=== PATIENT | female | born 1935 | race Caucasian/White ===

== ENCOUNTER 2016-08-30 11:16 | Outpatient (CLI) | payer MEDICARE ==
[2016-08-19 10:01] VITALS: BP 93/43
[2016-08-30 11:58] LABS: eGFR (African) > 60; eGFR (Non-African) > 60
== END 2016-08-30 11:18 ==
LOC: LAB 11:16
PROVIDERS: ATTEND Family Medicine
DX: E78.2 Mixed hyperlipidemia (principal)
CPT/HCPCS: 36415; 80053; 80061

== ENCOUNTER 2017-05-10 09:50 | Inpatient (IN) | payer MEDICARE ==
--- NOTE | 2017-05-10 10:00 | ED Physician Documentation ---
General Adult - HISTORIAN Historian: patient, paramedics - HPI Stated Complaint: fell after taking a percocet approx one hour prior Chief Complaint: Low Back Pain/ Injury Onset: hours (1) Timing: still present Severity: moderate Modifying Factors: none Context: non Quality: non Location: none Further Comments: yes (she has the same back pain and that is why she take the percocet which usually helps although she is still having pain) Last known Well Date: 05/10/17 Last Known Well Time: 08:00 Last known Well Code/Unknown Code: Unknown - ROS CONST: denies: fever, recent illness, weight loss EYES/ENT: none CVS/RESP: shortness of breath (always short on air per ) GI/: none. denies: abdominal pain, problems urinating, vomiting, nausea MS/SKIN/LYMPH: none NEURO/PSYCH: difficulty walking (weakness ). denies: headache, fainting, dizziness, tingling, numbness - PAST HX Past History: other (stroke 6 years ago , history of lung CA ) Immunizations: referred to PCP Allergies/Adverse Reactions: Allergies Allergy/AdvReac Type Severity Reaction Status Date / Time No Known Allergies Allergy Verified 05/10/17 10:07 Home Medications: Ambulatory Orders Medication Instructions Recorded Presser Vision 1 tab PO DAILY 12/17/15 Cyanocobalamin [Vitamin B-12] 1,000 mcg PO DAILY 05/10/17 Docusate Sodium [Colace] 100 mg PO DAILY 05/10/17 Primidone [Mysoline] 50 mg PO DAILY 05/10/17 - SOCIAL HX Smoking History: non-smoker Alcohol Use: none Drug Use: none - FAMILY HX Family History: Yes - VITAL SIGNS Vital Signs: Vital Signs Temp Pulse Resp BP Pulse Ox 93/43 12/25/15 07:53 - REVIEWED ASSESSMENTS Nursing Assessment Reviewed: Yes Vitals Reviewed: Yes Progress - Progress Progress: patient continues to get short of breath , sat drops to 88% with standing then with movement in bed she had oxygen levels drop to 82% and she does complain of shortness of breath. She does have history of Lung CA (could not tolerate chemo did finish radiation) ED Results Lab/Radiology - Radiology Radiology Impressions: Examination: Plain film lumbar spine History: Fall Comparison exam: None available Findings: 3 views of the lumbar spine demonstrates diffuse osteopenia. Superior endplate narrowing of L3. Anterior osteophytes. Curvature to the left on the anterior posterior film. Significant atherosclerotic disease involving the abdominal aorta and iliac vessels. Maximum aortic diameter of 3.1 cm at the level of L3. Impression: Osteopenia and superior endplate narrowing L3: Chronicity indeterminate. Generalized degenerative changes. Prominence of the aorta to 3.1 cm at the level of L3. Generalized atherosclerotic disease. Electronically signed on May 10, 2017 11:09:16 AM CDT by: Satya Tierney Examination: Plain film thoracic spine History: Fall Findings: 3 views of the thoracic spine demonstrate normal height. No anterior compression. Anterior osteophytes. Atherosclerotices involving the thoracic and abdominal aorta. Mona cath over the right upper thorax. Impression: Degenerative changes. No compression deformity. Electronically signed on May 10, 2017 11:10:25 AM CDT by: Satya Tierney Examination: PA and lateral chest History: Evaluate lung paul. Comparison exam: None available for direct view Findings: PA lateral chest demonstrates prominent cardiac silhouette. Chronic appearing interstitial changes. Apical pleural thickening. Right-sided mona cath. No blunting of the costophrenic margins. Osseous structures are appropriate for age. Impression: Cardiomegaly and chronic appearing parenchymal interstitial pattern. Correlation with prior studies recommended. No gross effusion. Electronically signed on May 10, 2017 11:12:46 AM CDT by: Satya Tierney General Adult Physical Exam - PHYSICAL EXAM GENERAL APPEARANCE: mild distress NECK: normal inspection RESPIRATORY: other (decreased air movement ) CVS: reg rate & rhythm, heart sounds normal ABDOMEN: soft, no organomegaly, normal bowel sounds BACK: other (HUGHES she states the pain is too severe to sit up and view ) SKIN: warm/dry EXTREMITIES: non-tender, normal range of motion, no evidence of injury, no edema. No: tenderness NEURO: oriented X3 Discharge Clincal Impression: Hypoxemia Condition: Stable Disposition: ADMITTED INPATIENT Decision to Admit: [id number] Date of Decison to Admit: 05/10/17 Decision Time: 14:07
[2017-05-10 10:36] LABS: MEAN CORPUSCULAR HEMOGLOBIN 30.9 pg (28.0-34.0); MEAN CORPUSCULAR VOLUME 100.4 fl (80.0-100.0)
[2017-05-10 11:06] LABS: eGFR (African) > 60; eGFR (Non-African) > 60
[2017-05-10 11:07] LABS: ANISOCYTOSIS 1+ (NEGATIVE); HYPOCHROMASIA 1+ (NEGATIVE); MONOCYTES % 4 % (0-11); SEGMENTED NEUTROPHILS % 66 % (39-79)
[2017-05-10] MEDS ORDERED: KETOROLAC TROMETHAMINE 30 MG/1ML VIAL IVP ONE (11:19)
--- NOTE | 2017-05-10 11:56 | Diagnostic Imaging Report ---
HALI TRINH [facility] [address] [facility] [address] [place], [place]. [address] Report Submission Date: May 10, 2017 11:12:46 AM CDT Patient Study Name: JULEE CHEN Date: May 10, 2017 10:50:59 AM CDT Modality Type: CR Gender: F Description: CHEST : 39 Institution: [facility] Physician: HALI TRINH Examination: PA and lateral chest History: Evaluate lung paul. Comparison exam: None available for direct view Findings: PA lateral chest demonstrates prominent cardiac silhouette. Chronic appearing interstitial changes. Apical pleural thickening. Right-sided saw cath. No blunting of the costophrenic margins. Osseous structures are appropriate for age. Impression: Cardiomegaly and chronic appearing parenchymal interstitial pattern. Correlation with prior studies recommended. No gross effusion. Electronically signed on May 10, 2017 11:12:46 AM CDT by: Satya WILLIAM
--- NOTE | 2017-05-10 11:57 | Diagnostic Imaging Report ---
HALI TRINH [facility] [address] [facility] [address] [place], [place]. [address] Report Submission Date: May 10, 2017 11:10:25 AM CDT Patient Study Name: JULEE CHEN Date: May 10, 2017 10:32:10 AM CDT Modality Type: CR Gender: F Description: SPINE : 39 Institution: [facility] Physician: HALI TRINH Examination: Plain film thoracic spine History: Fall Findings: 3 views of the thoracic spine demonstrate normal height. No anterior compression. Anterior osteophytes. Atherosclerotices involving the thoracic and abdominal aorta. Mona cath over the right upper thorax. Impression: Degenerative changes. No compression deformity. Electronically signed on May 10, 2017 11:10:25 AM CDT by: Satya WILLIAM
--- NOTE | 2017-05-10 11:57 | Diagnostic Imaging Report ---
HALI TRINH [facility] [address] [facility] [address] [place], [place]. [address] Report Submission Date: May 10, 2017 11:09:16 AM CDT Patient Study Name: JULEE CHEN Date: May 10, 2017 10:30:04 AM CDT Modality Type: CR Gender: F Description: SPINE : 39 Institution: [facility] Physician: HALI TRINH Examination: Plain film lumbar spine History: Fall Comparison exam: None available Findings: 3 views of the lumbar spine demonstrates diffuse osteopenia. Superior endplate narrowing of L3. Anterior osteophytes. Curvature to the left on the anterior posterior film. Significant atherosclerotic disease involving the abdominal aorta and iliac vessels. Maximum aortic diameter of 3.1 cm at the level of L3. Impression: Osteopenia and superior endplate narrowing L3: Chronicity indeterminate. Generalized degenerative changes. Prominence of the aorta to 3.1 cm at the level of L3. Generalized atherosclerotic disease. Electronically signed on May 10, 2017 11:09:16 AM CDT by: Satya WILLIAM
[2017-05-10] MEDS ORDERED: IPRATROPIUM/ALBUTEROL SULFATE 3 ML AMPUL.NEB NEB ONE ×2 (13:29)
[2017-05-10] MEDS ORDERED: IPRATROPIUM/ALBUTEROL SULFATE 3 ML AMPUL.NEB NEB PRN (13:44)
[2017-05-10] MEDS ORDERED: methylPREDNISolone SOD SUCC 125 MG/2 ML VIAL IVP ONE (13:59)
[2017-05-10] MEDS ORDERED: SIMVASTATIN 20 MG TABLET PO SCH (14:00)
[2017-05-10] MEDS ORDERED: OXYBUTYNIN CHLORIDE 5 MG TABLET PO ONE (14:53)
[2017-05-10] MEDS ORDERED: MIRTAZAPINE 15 MG TABLET PO ONE (14:58)
[2017-05-10] MEDS: PANTOPRAZOLE SODIUM 40 MG TABLET PO SCH (15:07)
[2017-05-10] MEDS: ENOXAPARIN SODIUM 30 MG/0.3 ML DISP.SYRIN SQ SCH (15:07)
[2017-05-10] MEDS: oxyCODONE/ACETAMINOPHEN 5/325 TABLET PO PRN ×2 (16:31→20:54)
[2017-05-10] MEDS ORDERED: ONDANSETRON HCL/PF 4 MG/ 2ML VIAL IVP PRN (16:44)
[2017-05-10] MEDS ORDERED: ACETAMINOPHEN 325 MG TABLET PO PRN (16:44)
[2017-05-10 17:51] VITALS: BMI 24.2
--- NOTE | 2017-05-10 20:28 | History and Physical Report ---
History of Present Illnes - History of Present Illness Reason for Visit: Fall History of Present Illness: Patient presented to the ER after falling at home. She stumbled and fell against the wall. Has a h/o chronic back pain, but it felt worse so she came in. Reports she has had worsening SOB recently. Has a long history of smoking - now has recurrent lung cancer and COPD. She wears O2 at night. She was found in the ER to be hypoxic with activity. Rolling over in bed caused her SATS to drop to 82%. She is being admitted for COPD exacerbation. 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 She sees Dr. Mccray. Has been having issues with memory and concentration. 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 Severino in pain management several times.), Other (Osteoporosis) Endocrine: denies: Diabetes - Past Surgical History Past Surgical History: Other (refer to above) - Past Family History Mother Family History: Other (lived to age 91 - dementia) Father Family History: Other (prostate cancer, age 84) - Past Social History Smoke: 1 pack per day Occupation: Retired Alcohol: None Drugs: None Lives: With Family ( of 55 years - Sam) - Health Maintenance Health Maintenance: Influenza Vaccine, Pneumococcal Vaccine, Colonoscopy Influenza Vaccine: Current for this Influenza Season Pneumonia Vaccine: Yes Resuscitation Status: Resusciation Status Resuscitation Status Full Code Review of Systems - Review of Systems Constitutional: negative: Fever, Weakness Eyes: negative: pain ENT: negative: Ear Pain, Ear Discharge Respiratory: Cough, Shortness of Breath Cardiovascular: negative: Chest Pain, Palpitations Gastrointestinal: negative: Nausea, Vomiting, Abdominal Pain, Diarrhea Genitourinary: negative: Dysuria Musculoskeletal: Back Pain. negative: Neck Pain Skin: negative: Rash Neurological: Weakness - Medications/Allergies Allergies/Adverse Reactions: Allergies Allergy/AdvReac Type Severity Reaction Status Date / Time No Known Allergies Allergy Verified 05/10/17 10:07 Home Medications: Home Medications Cyanocobalamin [Vitamin B-12] 1,000 mcg PO DAILY 05/10/17 Docusate Sodium [Colace] 100 mg PO DAILY 05/10/17 Primidone [Mysoline] 50 mg PO DAILY 05/10/17 Current Inpatient Medications: Current Inpatient Medications Acetaminophen (Tylenol) 650 mg PO Q6H PRN PRN Reason: Fever >101 Albuterol/Ipratropium (Duoneb) 3 ml NEB Q4 PRN PRN Reason: Wheezing Cyanocobalamin (Vitamin B-12) 1,000 mcg PO DAILY [facility] Docusate Sodium (Colace) 100 mg PO DAILY [facility] Duloxetine HCl (Cymbalta) 30 mg PO DAILY [facility] Enoxaparin Sodium (Lovenox) 30 mg SQ QD [facility] Stop: 05/23/17 14:01 Last Admin: 05/10/17 15:07 Dose: 30 mg Megestrol Acetate (Megace) 300 mg PO BID [facility] Methylprednisolone Sodium Succinate (Solu-Medrol) 60 mg IVP Q12 [facility] Mirtazapine (Remeron) 15 mg PO HS [facility] Ondansetron HCl (Zofran 4 Mg/2 Ml) 4 mg IVP Q6H PRN PRN Reason: Nausea / Vomiting Oxybutynin Chloride (Ditropan) 5 mg PO HS [facility] Oxycodone/Acetaminophen (Percocet 5-325 Mg Tablet) 1 each PO Q4 PRN PRN Reason: Severe Pain Last Admin: 05/10/17 16:31 Dose: 1 each Pantoprazole Sodium (Protonix) 40 mg PO 0700 [facility] Last Admin: 05/10/17 15:07 Dose: 40 mg Primidone (Mysoline) 50 mg PO DAILY [facility] Sodium Chloride (Normal Saline Flush) 3 ml IV BID [facility] Exam - Exam Vital Signs: Vital Signs (72 hours) 05/10/17 05/10/17 05/10/17 14:00 14:26 18:00 Temperature 98 F 97.6 F Pulse Rate [ 97 H 97 H 93 H Pulse ox] Respiratory 24 20 20 Rate Blood Pressure 140/73 [Left Arm] Blood Pressure 161/70 134/68 [Right Arm] O2 Sat by Pulse 97 97 94 Oximetry General: Alert, Oriented to Person, Oriented to Place, Oriented to Time, Cooperative, Mild distress HEENT: Atraumatic, PERRLA, EOMI, Mouth Mucous membr. moist/[place], Nose Mucous membr. moist/[place] Neck: Normal Range of Motion Lungs: Rhonchi Cardiovascular: Regular rate Abdomen: Normal bowel sounds, Soft, No tenderness Integumentary: Normal Extremities: No edema Neurological: Generalized Weakness Psych/Mental Status: Mental status NL, Mood NL, Appropriate Affect, Intact Judgment Assessment/Plan - Assessment/Plan (1) COPD exacerbation Status: Acute Current Visit: Yes Plan: Plan to admit with duonebs and IV solumedrol. Will use lovenox for DVT prevention but watch platelets closely. Place DANELLE hose. O2 to keeps sats > 90% . CXR clear of infiltrate and normal WBC. Hold antibiotics at this time. (2) Hypoxemia Status: Acute Current Visit: Yes (3) Chronic low back pain Status: Acute Current Visit: No Qualifiers: Back pain laterality: bilateral Sciatica presence: without sciatica Qualified Code(s): M54.5 - Low back pain; G89.29 - Other chronic pain; G89.29 - Other chronic pain Plan: Continue current pain meds. Xrays negative. Kpad as needed. (4) Lung cancer Status: Acute Current Visit: No Qualifiers: Laterality: right Lung location: upper lobe of lung Qualified Code(s): C34.11 - Malignant neoplasm of upper lobe, right bronchus or lung Plan: Patient continues to get weaker. I don't see how can care for her much longer. Will get social science teacher involved to discuss possible placement. I had home health starting tomorrow for patient. VTE Assessment - RISK FACTOR SCORE VTE RISK FACTOR SCORES: AGE OVER 60 YEARS, ANTICIPATED BED CONFINEMENT OR IMMOBILIZATION > 24 HOURS, MALIGNANCY AND/OR CHEMOTHERAPY, DOCUMENTED HX OF VTE - RISK VTE HIGH RISK: SCORE OF 3-4 (RISK PROXIMAL DVT 4-8%) PROPHYLAXIS NEEDED
[2017-05-10] MEDS: OXYBUTYNIN CHLORIDE 5 MG TABLET PO SCH (20:50)
[2017-05-10] MEDS: MEGESTROL ACETATE 40 MG/ML PO SCH (20:52)
[2017-05-10] MEDS: MIRTAZAPINE 15 MG TABLET PO SCH (20:53)
[2017-05-10] MEDS: SALINE FLUSH 10 ML DISP.SYRIN IV SCH (20:54)
[2017-05-10] MEDS: methylPREDNISolone SOD SUCC 40 MG/ML VIAL IVP SCH (21:48)
[2017-05-11] MEDS: oxyCODONE/ACETAMINOPHEN 5/325 TABLET PO PRN ×4 (01:30→16:43)
[2017-05-11] MEDS: PANTOPRAZOLE SODIUM 40 MG TABLET PO SCH (06:32)
--- NOTE | 2017-05-11 06:40 | Inpatient Progress Note ---
Subjective - Required Recertification Statement I anticipate X number of days because-include discharge plan: 2 - Review of Systems Subjective: Patient feeling ok. Complains of back pain. Somewhat confused. Objective - Exam Vitals and I&O: Vital Signs Temp 97.7 F 05/11/17 05:17 Pulse 98 H 05/11/17 05:17 Resp 18 05/11/17 05:17 BP 157/91 05/11/17 05:17 Pulse Ox 95 05/11/17 05:17 Intake & Output 05/10/17 05/10/17 05/11/17 11:59 23:59 11:59 Intake Total 100 Balance 100 Weight 68 kg Intake: Oral 100 Other: Voiding Method Incontinent # Voids 0 1 General: Alert, Oriented to Person, Oriented to Place, Cooperative, No acute distress. No: Oriented to Time Lungs: Normal air movement, Speaks full Sentences, Rhonchi Cardiovascular: Regular rate - Results Results: Laboratory Results WBC 7.90 K/ul (4.00-12.00) 05/10/17 10:25 RBC 3.39 M/ul (3.90-5.20) L 05/10/17 10:25 Hgb 10.5 g/dL (12.0-16.0) L 05/10/17 10:25 Hct 34.1 % (34.5-46.5) L 05/10/17 10:25 MCV 100.4 fl (80.0-100.0) H 05/10/17 10:25 MCH 30.9 pg (28.0-34.0) 05/10/17 10:25 MCHC 30.8 g/dL (30.0-36.0) 05/10/17 10:25 RDW 15.0 % (11.3-14.3) H 05/10/17 10:25 Plt Count 119 K/mm3 (130-400) L 05/10/17 10:25 Seg Neutrophils % 66 % (39-79) 05/10/17 10:25 Band Neutrophils % 1 % (0-12) 05/10/17 10:25 Lymphocytes % 29 % (16-50) 05/10/17 10:25 Monocytes % 4 % (0-11) 05/10/17 10:25 Large Platelets Present (NEGATIVE) H 05/10/17 10:25 Plt Morphology Comment Abnormal (NORMAL) H 05/10/17 10:25 Hypochromasia 1+ (NEGATIVE) H 05/10/17 10:25 Anisocytosis 1+ (NEGATIVE) H 05/10/17 10:25 RBC Morph Comment Abnormal (NORMAL) H 05/10/17 10:25 Sodium 141 mmol/L (137-145) 05/10/17 10:25 Potassium 3.8 mmol/L (3.5-5.1) 05/10/17 10:25 Chloride 102 mmol/L (98-107) 05/10/17 10:25 Carbon Dioxide 28 mmol/L (22-30) 05/10/17 10:25 BUN 19 mg/dL (7-17) H 05/10/17 10:25 Creatinine 0.70 mg/dL (0.52-1.04) 05/10/17 10:25 Estimated Creat Clear 81 05/10/17 10:25 Est GFR ( Amer) > 60 (60-) 05/10/17 10:25 Est GFR (Non-Af Amer) > 60 (60-) 05/10/17 10:25 Glucose 134 mg/dL (74-106) H 05/10/17 10:25 Calcium 9.0 mg/dL (8.4-10.2) 05/10/17 10:25 Total Bilirubin 0.3 mg/dL (0.2-1.3) 05/10/17 10:25 AST 28 U/L (15-46) 05/10/17 10:25 ALT 25 U/L (13-69) 05/10/17 10:25 Alkaline Phosphatase 85 U/L (38-126) 05/10/17 10:25 Total Protein 8.3 g/dL (6.3-8.2) H 05/10/17 10:25 Albumin 4.2 g/dL (3.5-5.0) 05/10/17 10:25 Assessment/Plan - Assessment/Plan (1) COPD exacerbation Status: Acute Current Visit: Yes Plan: Continue IV solumedrol and Duonebs. (2) Hypoxemia Status: Acute Current Visit: Yes (3) Chronic low back pain Status: Acute Current Visit: No Qualifiers: Back pain laterality: bilateral Sciatica presence: without sciatica Qualified Code(s): M54.5 - Low back pain; G89.29 - Other chronic pain; G89.29 - Other chronic pain Plan: Trial of out of bed to help with pain. Add ibuprofen prn. (4) Lung cancer Status: Acute Current Visit: No Qualifiers: Laterality: right Lung location: upper lobe of lung Qualified Code(s): C34.11 - Malignant neoplasm of upper lobe, right bronchus or lung
[2017-05-11 07:14] LABS: MEAN CORPUSCULAR HEMOGLOBIN 30.8 pg (28.0-34.0); MEAN CORPUSCULAR VOLUME 97.1 fl (80.0-100.0)
[2017-05-11 07:16] LABS: BASOPHILS % 1.1 (0.0-1.5); EOSINOPHILS % 1.1 % (0.0-6.8); NEUTROPHILS # 2.8 # k/uL (1.4-7.7)
[2017-05-11 07:28] LABS: eGFR (African) > 60; eGFR (Non-African) > 60
[2017-05-11] MEDS ORDERED: IBUPROFEN 200 MG TABLET PO PRN (07:58)
[2017-05-11] MEDS: DOCUSATE SODIUM 100 MG CAPSULE PO SCH (08:50)
[2017-05-11] MEDS: MEGESTROL ACETATE 40 MG/ML PO SCH ×2 (08:51→20:13)
[2017-05-11] MEDS: DULoxetine HCL 30 MG CAPSULE.DR PO SCH (08:51)
[2017-05-11] MEDS: PRIMIDONE 50 MG TABLET PO SCH (08:53)
[2017-05-11] MEDS: SALINE FLUSH 10 ML DISP.SYRIN IV SCH ×2 (08:54→20:13)
[2017-05-11] MEDS: CYANOCOBALAMIN 1,000 MCG TABLET PO SCH (08:54)
[2017-05-11] MEDS ORDERED: DULoxetine HCL 30 MG CAPSULE.DR PO SCH ×2 (09:00)
[2017-05-11] MEDS ORDERED: PRIMIDONE 50 MG TABLET PO SCH (09:00)
[2017-05-11] MEDS: methylPREDNISolone SOD SUCC 40 MG/ML VIAL IVP SCH ×2 (09:48→20:12)
[2017-05-11] MEDS: ENOXAPARIN SODIUM 30 MG/0.3 ML DISP.SYRIN SQ SCH (13:16)
[2017-05-11] MEDS: OXYBUTYNIN CHLORIDE 5 MG TABLET PO SCH (20:13)
[2017-05-11] MEDS: MIRTAZAPINE 15 MG TABLET PO SCH (20:13)
[2017-05-12] MEDS: oxyCODONE/ACETAMINOPHEN 5/325 TABLET PO PRN ×3 (05:42→17:20)
[2017-05-12] MEDS: PANTOPRAZOLE SODIUM 40 MG TABLET PO SCH (06:26)
--- NOTE | 2017-05-12 08:22 | Inpatient Progress Note ---
Subjective - Required Recertification Statement I anticipate X number of days because-include discharge plan: 1 - Review of Systems Subjective: Patient reports breathing is better at rest. When she got up to bathroom, she continues to get SOB. Objective - Exam Vitals and I&O: Vital Signs Temp 98.2 F 05/12/17 05:19 Pulse 97 H 05/12/17 05:19 Resp 21 05/12/17 05:19 BP 151/84 05/12/17 05:19 Pulse Ox 95 05/12/17 05:19 Intake & Output 05/11/17 05/11/17 05/12/17 11:59 23:59 11:59 Intake Total 120 475 Balance 120 475 Weight 68 kg Intake: Oral 120 475 Other: Voiding Method Incontinent Incontinent # Voids 1 1 General: Alert, Oriented to Person, Oriented to Place, Oriented to Time, Cooperative, No acute distress Lungs: Rhonchi Cardiovascular: Regular rate - Results Results: Laboratory Results WBC 3.54 K/ul (4.00-12.00) L 05/11/17 07:00 RBC 3.23 M/ul (3.90-5.20) L 05/11/17 07:00 Hgb 9.9 g/dL (12.0-16.0) L 05/11/17 07:00 Hct 31.4 % (34.5-46.5) L 05/11/17 07:00 MCV 97.1 fl (80.0-100.0) 05/11/17 07:00 MCH 30.8 pg (28.0-34.0) 05/11/17 07:00 MCHC 31.7 g/dL (30.0-36.0) 05/11/17 07:00 RDW 15.2 % (11.3-14.3) H 05/11/17 07:00 Plt Count 119 K/mm3 (130-400) L 05/11/17 07:00 Neut % (Auto) 78.7 % (39.0-79.0) 05/11/17 07:00 Lymph % (Auto) 17.1 % (16.0-50.0) 05/11/17 07:00 [place] % (Auto) 1.0 % (0.0-11.0) 05/11/17 07:00 Eos % (Auto) 1.1 % (0.0-6.8) 05/11/17 07:00 Baso % (Auto) 1.1 (0.0-1.5) 05/11/17 07:00 Neut # (Auto) 2.8 # k/uL (1.4-7.7) 05/11/17 07:00 Lymph # (Auto) 0.6 # k/uL (0.6-4.0) 05/11/17 07:00 [place] # (Auto) 0.0 # k/uL (0.0-0.9) 05/11/17 07:00 Eos # (Auto) 0.0 # k/uL (0.0-0.6) 05/11/17 07:00 Baso # (Auto) 0.0 # k/uL (0.0-0.5) 05/11/17 07:00 Seg Neutrophils % 66 % (39-79) 05/10/17 10:25 Band Neutrophils % 1 % (0-12) 05/10/17 10:25 Lymphocytes % 29 % (16-50) 05/10/17 10:25 Reactive Lymphs % 0.9 % (0.0-5.0) 05/11/17 07:00 Monocytes % 4 % (0-11) 05/10/17 10:25 Reactive Lymphs # 0.0 # k/uL (0.0-0.8) 05/11/17 07:00 Large Platelets Present (NEGATIVE) H 05/10/17 10:25 Plt Morphology Comment Abnormal (NORMAL) H 05/10/17 10:25 Hypochromasia 1+ (NEGATIVE) H 05/10/17 10:25 Anisocytosis 1+ (NEGATIVE) H 05/10/17 10:25 RBC Morph Comment Abnormal (NORMAL) H 05/10/17 10:25 Sodium 138 mmol/L (137-145) 05/11/17 07:00 Potassium 4.5 mmol/L (3.5-5.1) 05/11/17 07:00 Chloride 101 mmol/L (98-107) 05/11/17 07:00 Carbon Dioxide 27 mmol/L (22-30) 05/11/17 07:00 BUN 21 mg/dL (7-17) H 05/11/17 07:00 Creatinine 0.80 mg/dL (0.52-1.04) 05/11/17 07:00 Estimated Creat Clear 72 05/11/17 07:00 Est GFR ( Amer) > 60 (60-) 05/11/17 07:00 Est GFR (Non-Af Amer) > 60 (60-) 05/11/17 07:00 Glucose 160 mg/dL (74-106) H 05/11/17 07:00 Calcium 9.5 mg/dL (8.4-10.2) 05/11/17 07:00 Total Bilirubin 0.3 mg/dL (0.2-1.3) 05/10/17 10:25 AST 28 U/L (15-46) 05/10/17 10:25 ALT 25 U/L (13-69) 05/10/17 10:25 Alkaline Phosphatase 85 U/L (38-126) 05/10/17 10:25 Total Protein 8.3 g/dL (6.3-8.2) H 05/10/17 10:25 Albumin 4.2 g/dL (3.5-5.0) 05/10/17 10:25 Assessment/Plan - Assessment/Plan (1) COPD exacerbation Status: Acute Current Visit: Yes Plan: Patient had been on Duonebs prn but has quit asking for them so I am going to make them scheduled. Plan to work on weaning off O2 today if tolerated. Continue IV steroids. Plan d/c from acute care tomorrow. aware. Will work with Engineering Clerk on placement. (2) Hypoxemia Status: Acute Current Visit: Yes (3) Chronic low back pain Status: Acute Current Visit: No Qualifiers: Back pain laterality: bilateral Sciatica presence: without sciatica Qualified Code(s): M54.5 - Low back pain; G89.29 - Other chronic pain; G89.29 - Other chronic pain (4) Lung cancer Status: Acute Current Visit: No Qualifiers: Laterality: right Lung location: upper lobe of lung Qualified Code(s): C34.11 - Malignant neoplasm of upper lobe, right bronchus or lung
[2017-05-12] MEDS ORDERED: PRIMIDONE 50 MG TABLET PO SCH (09:00)
[2017-05-12] MEDS: MEGESTROL ACETATE 40 MG/ML PO SCH ×2 (09:13→20:15)
[2017-05-12] MEDS: DULoxetine HCL 30 MG CAPSULE.DR PO SCH (09:13)
[2017-05-12] MEDS: DOCUSATE SODIUM 100 MG CAPSULE PO SCH (09:13)
[2017-05-12] MEDS: CYANOCOBALAMIN 1,000 MCG TABLET PO SCH (09:14)
[2017-05-12] MEDS: PRIMIDONE 50 MG TABLET PO SCH (09:14)
[2017-05-12] MEDS: methylPREDNISolone SOD SUCC 40 MG/ML VIAL IVP SCH ×2 (09:15→20:15)
[2017-05-12] MEDS: IPRATROPIUM/ALBUTEROL SULFATE 3 ML AMPUL.NEB NEB SCH ×4 (09:16→21:26)
[2017-05-12] MEDS: SALINE FLUSH 10 ML DISP.SYRIN IV SCH ×2 (09:29→21:44)
[2017-05-12] MEDS: ENOXAPARIN SODIUM 30 MG/0.3 ML DISP.SYRIN SQ SCH (13:40)
[2017-05-12] MEDS: MIRTAZAPINE 15 MG TABLET PO SCH (20:15)
[2017-05-12] MEDS: OXYBUTYNIN CHLORIDE 5 MG TABLET PO SCH (20:15)
[2017-05-13] MEDS: PANTOPRAZOLE SODIUM 40 MG TABLET PO SCH (06:05)
[2017-05-13] MEDS: oxyCODONE/ACETAMINOPHEN 5/325 TABLET PO PRN (06:23)
[2017-05-13 06:44] LABS: MEAN CORPUSCULAR HEMOGLOBIN 30.4 pg (28.0-34.0)
[2017-05-13 06:49] LABS: eGFR (African) > 60; eGFR (Non-African) > 60
[2017-05-13 08:41] LABS: MONOCYTES % 1 % (0-11); SEGMENTED NEUTROPHILS % 84 % (39-79)
[2017-05-13] MEDS: DULoxetine HCL 30 MG CAPSULE.DR PO SCH (09:04)
[2017-05-13] MEDS: DOCUSATE SODIUM 100 MG CAPSULE PO SCH (09:04)
[2017-05-13] MEDS: CYANOCOBALAMIN 1,000 MCG TABLET PO SCH (09:05)
[2017-05-13] MEDS: MEGESTROL ACETATE 40 MG/ML PO SCH (09:05)
[2017-05-13] MEDS: SALINE FLUSH 10 ML DISP.SYRIN IV SCH (09:05)
--- NOTE | 2017-05-13 09:35 | Discharge Summary ---
Discharge Summary - Discharge Sumary History of Present Illness: Patient presented to the ER after falling at home. She stumbled and fell against the wall. Has a h/o chronic back pain, but it felt worse so she came in. Reports she has had worsening SOB recently. Has a long history of smoking - now has recurrent lung cancer and COPD. She wears O2 at night. She was found in the ER to be hypoxic with activity. Rolling over in bed caused her SATS to drop to 82%. She is being admitted for COPD exacerbation. 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 She sees Dr. Mccray. Has been having issues with memory and concentration. Condition at Discharge: Stable Home Medications: Ambulatory Orders Medication Instructions Recorded Presser Vision 1 tab PO DAILY 12/17/15 Cyanocobalamin [Vitamin B-12] 1,000 mcg PO DAILY 05/10/17 Docusate Sodium [Colace] 100 mg PO DAILY 05/10/17 Primidone [Mysoline] 50 mg PO DAILY 05/10/17 Consultations this Visit: None Procedures this Visit: None Allergies/Adverse Reactions: Allergies Allergy/AdvReac Type Severity Reaction Status Date / Time No Known Allergies Allergy Verified 05/10/17 10:07 Patient Problems: Current Active Problems Problem Status Onset COPD exacerbation Acute Hypoxemia Acute Discharge Summary: Patient was admitted to Acute with COPD exacerbation and hypoxia. She was treated with o2 and IV steroids as well as duonebs. Finally on the day of discharge she felt her breathing was improved. She will be moved to SNF as she is too debilitated to return home. Plan to continue o2 prn, duonebs, and steroid taper. Hospital Course: Discharge Dx: Copd exacerbation. Lung cancer. hypoxia. Disposition - SNF
[2017-05-13] MEDS: methylPREDNISolone SOD SUCC 40 MG/ML VIAL IVP SCH (09:55)
[2017-05-13] MEDS: IPRATROPIUM/ALBUTEROL SULFATE 3 ML AMPUL.NEB NEB SCH (10:16)
[2017-05-13] MEDS: PRIMIDONE 50 MG TABLET PO SCH (10:21)
[2017-05-13 12:17] VITALS: BP 168/88
== END 2017-05-13 11:17 | DRG 192 ==
LOC: ED 09:50 → SOUTH 13:37
PROVIDERS: ADMIT Family Medicine; ATTEND Family Medicine
DX: J44.1 Chronic obstructive pulmonary disease with (acute) exacerbation (principal); R09.02 Hypoxemia
CPT/HCPCS: 36415; 71020; 72072; 72100; 80048; 80053; 85025; 97116; 97165; 97530; 97535; A9270; J1030; J1650; J1885; J2930; 99222; 99223; 99232; 99238; 99283; 99284; J2920

== ENCOUNTER 2017-05-13 11:17 | Inpatient (IN) | payer MEDICARE ==
[2017-05-13] MEDS ORDERED: oxyCODONE/ACETAMINOPHEN 5/325 TABLET PO PRN (13:31)
[2017-05-13 14:02] VITALS: BMI 29.2
[2017-05-13] MEDS: PANTOPRAZOLE SODIUM 40 MG TABLET PO SCH (15:07)
[2017-05-13] MEDS: ENOXAPARIN SODIUM 30 MG/0.3 ML DISP.SYRIN SQ SCH (15:07)
[2017-05-13] MEDS: IPRATROPIUM/ALBUTEROL SULFATE 3 ML AMPUL.NEB NEB SCH ×2 (16:58→21:32)
[2017-05-13] MEDS: IBUPROFEN 400 MG TABLET PO SCH (18:10)
[2017-05-13] MEDS: MIRTAZAPINE 15 MG TABLET PO SCH (21:02)
[2017-05-13] MEDS: OXYBUTYNIN CHLORIDE 5 MG TABLET PO SCH (21:02)
[2017-05-14] MEDS: PANTOPRAZOLE SODIUM 40 MG TABLET PO SCH (06:04)
[2017-05-14] MEDS: IPRATROPIUM/ALBUTEROL SULFATE 3 ML AMPUL.NEB NEB SCH ×4 (09:36→20:39)
[2017-05-14] MEDS: IBUPROFEN 400 MG TABLET PO SCH ×3 (09:59→18:17)
[2017-05-14] MEDS: oxyCODONE/ACETAMINOPHEN 5/325 TABLET PO PRN ×2 (10:01→18:18)
[2017-05-14] MEDS: DOCUSATE SODIUM 100 MG CAPSULE PO SCH (10:04)
[2017-05-14] MEDS: predniSONE 20 MG TABLET PO SCH (10:05)
[2017-05-14] MEDS: PRIMIDONE 50 MG TABLET PO SCH (10:06)
[2017-05-14] MEDS: CYANOCOBALAMIN 1,000 MCG TABLET PO SCH (10:07)
[2017-05-14] MEDS: ENOXAPARIN SODIUM 30 MG/0.3 ML DISP.SYRIN SQ SCH (13:49)
[2017-05-14] MEDS: MIRTAZAPINE 15 MG TABLET PO SCH (20:18)
[2017-05-14] MEDS: OXYBUTYNIN CHLORIDE 5 MG TABLET PO SCH (20:18)
[2017-05-14] MEDS: MEGESTROL ACETATE 40 MG/ML PO SCH (20:19)
[2017-05-15] MEDS: PANTOPRAZOLE SODIUM 40 MG TABLET PO SCH (06:33)
[2017-05-15] MEDS: oxyCODONE/ACETAMINOPHEN 5/325 TABLET PO PRN ×3 (08:24→21:34)
[2017-05-15] MEDS: IBUPROFEN 400 MG TABLET PO SCH ×3 (08:25→17:44)
[2017-05-15] MEDS: PRIMIDONE 50 MG TABLET PO SCH (08:26)
[2017-05-15] MEDS: predniSONE 20 MG TABLET PO SCH (08:26)
[2017-05-15] MEDS: DOCUSATE SODIUM 100 MG CAPSULE PO SCH (08:26)
[2017-05-15] MEDS: CYANOCOBALAMIN 1,000 MCG TABLET PO SCH (08:26)
[2017-05-15] MEDS: MEGESTROL ACETATE 40 MG/ML PO SCH ×2 (08:27→20:11)
[2017-05-15] MEDS: IPRATROPIUM/ALBUTEROL SULFATE 3 ML AMPUL.NEB NEB SCH ×4 (08:28→21:30)
[2017-05-15] MEDS: ENOXAPARIN SODIUM 30 MG/0.3 ML DISP.SYRIN SQ SCH (13:50)
[2017-05-15] MEDS: OXYBUTYNIN CHLORIDE 5 MG TABLET PO SCH (20:10)
[2017-05-15] MEDS: MIRTAZAPINE 15 MG TABLET PO SCH (20:11)
[2017-05-16 06:16] LABS: MEAN CORPUSCULAR HEMOGLOBIN 31.1 pg (28.0-34.0); MEAN CORPUSCULAR VOLUME 96.8 fl (80.0-100.0)
[2017-05-16] MEDS: PANTOPRAZOLE SODIUM 40 MG TABLET PO SCH (06:24)
[2017-05-16 07:14] LABS: ANISOCYTOSIS 1+ (NEGATIVE)
[2017-05-16] MEDS: IPRATROPIUM/ALBUTEROL SULFATE 3 ML AMPUL.NEB NEB SCH (08:47)
[2017-05-16] MEDS: IBUPROFEN 400 MG TABLET PO SCH ×3 (08:50→17:14)
[2017-05-16] MEDS: DOCUSATE SODIUM 100 MG CAPSULE PO SCH (08:50)
[2017-05-16] MEDS: predniSONE 20 MG TABLET PO SCH (08:51)
[2017-05-16] MEDS: MEGESTROL ACETATE 40 MG/ML PO SCH ×2 (08:52→20:03)
[2017-05-16] MEDS: CYANOCOBALAMIN 1,000 MCG TABLET PO SCH (08:53)
[2017-05-16] MEDS: PRIMIDONE 50 MG TABLET PO SCH (08:53)
[2017-05-16] MEDS: oxyCODONE/ACETAMINOPHEN 5/325 TABLET PO PRN ×2 (08:54→17:12)
[2017-05-16] MEDS: DULoxetine HCL 30 MG CAPSULE.DR PO SCH (08:59)
[2017-05-16] MEDS ORDERED: IPRATROPIUM/ALBUTEROL SULFATE 3 ML AMPUL.NEB NEB PRN (10:35)
[2017-05-16] MEDS: ENOXAPARIN SODIUM 30 MG/0.3 ML DISP.SYRIN SQ SCH (13:09)
[2017-05-16] MEDS: MIRTAZAPINE 15 MG TABLET PO SCH (20:04)
[2017-05-16] MEDS: OXYBUTYNIN CHLORIDE 5 MG TABLET PO SCH (20:04)
[2017-05-17] MEDS: oxyCODONE/ACETAMINOPHEN 5/325 TABLET PO PRN ×3 (05:37→17:38)
[2017-05-17] MEDS: PANTOPRAZOLE SODIUM 40 MG TABLET PO SCH (05:38)
--- NOTE | 2017-05-17 08:07 | Inpatient Progress Note ---
Subjective - Required Recertification Statement I anticipate X number of days because-include discharge plan: 10 - Review of Systems Subjective: Patient did ok with therapy yesterday. thinks primidone is making her too sleepy and wishes to stop. Objective - Exam Vitals and I&O: Vital Signs Temp 98.6 F 05/16/17 20:13 Pulse 93 H 05/16/17 20:39 Resp 18 05/16/17 20:39 BP 132/72 05/16/17 20:13 Pulse Ox 95 05/16/17 20:13 Intake & Output 05/16/17 05/16/17 05/17/17 11:59 23:59 11:59 Intake Total 240 580 Balance 240 580 Weight 68 kg 68.492 kg Intake: Oral 240 580 Other: Voiding Method Toilet Toilet # Voids 3 1 1 General: Alert, Oriented to Person, Oriented to Place, Oriented to Time, Cooperative, No acute distress Lungs: Rhonchi Cardiovascular: Regular rate - Results Results: Laboratory Results WBC 10.60 K/ul (4.00-12.00) 05/16/17 06:00 RBC 3.08 M/ul (3.90-5.20) L 05/16/17 06:00 Hgb 9.6 g/dL (12.0-16.0) L 05/16/17 06:00 Hct 29.8 % (34.5-46.5) L 05/16/17 06:00 MCV 96.8 fl (80.0-100.0) 05/16/17 06:00 MCH 31.1 pg (28.0-34.0) 05/16/17 06:00 MCHC 32.2 g/dL (30.0-36.0) 05/16/17 06:00 RDW 15.1 % (11.3-14.3) H 05/16/17 06:00 Plt Count 165 K/mm3 (130-400) 05/16/17 06:00 Neut % (Auto) 75.0 % (39.0-79.0) 05/16/17 06:00 Lymph % (Auto) 17.0 % (16.0-50.0) 05/16/17 06:00 [place] % (Auto) 2.0 % (0.0-11.0) 05/16/17 06:00 Eos % (Auto) 2.0 % (0.0-6.8) 05/16/17 06:00 Baso % (Auto) 4.0 (0.0-1.5) H 05/16/17 06:00 Plt Morphology Comment Normal (NORMAL) 05/16/17 06:00 Poikilocytosis 1+ (NEGATIVE) H 05/16/17 06:00 Anisocytosis 1+ (NEGATIVE) H 05/16/17 06:00 RBC Morph Comment Normal (NORMAL) 05/16/17 06:00 Assessment/Plan - Assessment/Plan (1) Weakness generalized Status: Acute Current Visit: Yes Assessment: Continue PT/OT. Trial off primidone. Watch tremor.
[2017-05-17] MEDS: IBUPROFEN 400 MG TABLET PO SCH ×3 (09:56→17:32)
[2017-05-17] MEDS: DOCUSATE SODIUM 100 MG CAPSULE PO SCH (09:56)
[2017-05-17] MEDS: MEGESTROL ACETATE 40 MG/ML PO SCH ×2 (09:57→20:24)
[2017-05-17] MEDS: CYANOCOBALAMIN 1,000 MCG TABLET PO SCH (09:57)
[2017-05-17] MEDS: DULoxetine HCL 30 MG CAPSULE.DR PO SCH (09:58)
[2017-05-17] MEDS: ENOXAPARIN SODIUM 30 MG/0.3 ML DISP.SYRIN SQ SCH (15:45)
[2017-05-17] MEDS: OXYBUTYNIN CHLORIDE 5 MG TABLET PO SCH (20:25)
[2017-05-17] MEDS: MIRTAZAPINE 15 MG TABLET PO SCH (20:25)
[2017-05-18] MEDS: oxyCODONE/ACETAMINOPHEN 5/325 TABLET PO PRN ×4 (01:11→18:04)
[2017-05-18] MEDS: PANTOPRAZOLE SODIUM 40 MG TABLET PO SCH (06:20)
[2017-05-18] MEDS: DULoxetine HCL 30 MG CAPSULE.DR PO SCH ×2 (08:53→09:29)
[2017-05-18] MEDS: IBUPROFEN 400 MG TABLET PO SCH ×3 (08:53→18:04)
[2017-05-18] MEDS: MEGESTROL ACETATE 40 MG/ML PO SCH ×2 (08:53→19:47)
[2017-05-18] MEDS: DOCUSATE SODIUM 100 MG CAPSULE PO SCH (08:53)
[2017-05-18] MEDS: CYANOCOBALAMIN 1,000 MCG TABLET PO SCH (08:54)
[2017-05-18] MEDS: ENOXAPARIN SODIUM 30 MG/0.3 ML DISP.SYRIN SQ SCH (14:20)
[2017-05-18] MEDS: MIRTAZAPINE 15 MG TABLET PO SCH (19:47)
[2017-05-18] MEDS: OXYBUTYNIN CHLORIDE 5 MG TABLET PO SCH (19:47)
[2017-05-19] MEDS: PANTOPRAZOLE SODIUM 40 MG TABLET PO SCH (06:06)
[2017-05-19] MEDS: oxyCODONE/ACETAMINOPHEN 5/325 TABLET PO PRN ×3 (06:07→18:20)
[2017-05-19] MEDS: MEGESTROL ACETATE 40 MG/ML PO SCH ×2 (09:28→20:38)
[2017-05-19] MEDS: DOCUSATE SODIUM 100 MG CAPSULE PO SCH (09:28)
[2017-05-19] MEDS: DULoxetine HCL 30 MG CAPSULE.DR PO SCH (09:28)
[2017-05-19] MEDS: CYANOCOBALAMIN 1,000 MCG TABLET PO SCH (09:28)
[2017-05-19] MEDS: IBUPROFEN 400 MG TABLET PO SCH ×3 (09:28→18:20)
[2017-05-19] MEDS: ENOXAPARIN SODIUM 30 MG/0.3 ML DISP.SYRIN SQ SCH (13:45)
[2017-05-19] MEDS: OXYBUTYNIN CHLORIDE 5 MG TABLET PO SCH (20:38)
[2017-05-19] MEDS: MIRTAZAPINE 15 MG TABLET PO SCH (20:38)
[2017-05-20] MEDS: PANTOPRAZOLE SODIUM 40 MG TABLET PO SCH (06:54)
[2017-05-20] MEDS: oxyCODONE/ACETAMINOPHEN 5/325 TABLET PO PRN ×3 (07:31→20:22)
[2017-05-20] MEDS: IBUPROFEN 400 MG TABLET PO SCH ×3 (08:08→17:45)
[2017-05-20] MEDS: DOCUSATE SODIUM 100 MG CAPSULE PO SCH (08:08)
[2017-05-20] MEDS: DULoxetine HCL 30 MG CAPSULE.DR PO SCH (08:09)
[2017-05-20] MEDS: CYANOCOBALAMIN 1,000 MCG TABLET PO SCH (08:09)
[2017-05-20] MEDS: MEGESTROL ACETATE 40 MG/ML PO SCH ×2 (08:10→20:21)
[2017-05-20] MEDS: ENOXAPARIN SODIUM 30 MG/0.3 ML DISP.SYRIN SQ SCH (13:52)
[2017-05-20] MEDS: OXYBUTYNIN CHLORIDE 5 MG TABLET PO SCH (20:21)
[2017-05-20] MEDS: MIRTAZAPINE 15 MG TABLET PO SCH (20:21)
[2017-05-21] MEDS: oxyCODONE/ACETAMINOPHEN 5/325 TABLET PO PRN ×4 (06:10→20:33)
[2017-05-21] MEDS: PANTOPRAZOLE SODIUM 40 MG TABLET PO SCH (06:22)
[2017-05-21] MEDS: IBUPROFEN 400 MG TABLET PO SCH ×3 (08:51→17:18)
[2017-05-21] MEDS: DULoxetine HCL 30 MG CAPSULE.DR PO SCH (08:52)
[2017-05-21] MEDS: MEGESTROL ACETATE 40 MG/ML PO SCH ×2 (08:52→20:31)
[2017-05-21] MEDS: DOCUSATE SODIUM 100 MG CAPSULE PO SCH (08:52)
[2017-05-21] MEDS: CYANOCOBALAMIN 1,000 MCG TABLET PO SCH (08:52)
[2017-05-21] MEDS: ENOXAPARIN SODIUM 30 MG/0.3 ML DISP.SYRIN SQ SCH (14:51)
[2017-05-21] MEDS: MIRTAZAPINE 15 MG TABLET PO SCH (20:31)
[2017-05-21] MEDS: OXYBUTYNIN CHLORIDE 5 MG TABLET PO SCH (20:31)
[2017-05-22] MEDS: PANTOPRAZOLE SODIUM 40 MG TABLET PO SCH (06:05)
[2017-05-22] MEDS: IBUPROFEN 400 MG TABLET PO SCH ×3 (09:30→16:54)
[2017-05-22] MEDS: DOCUSATE SODIUM 100 MG CAPSULE PO SCH (09:31)
[2017-05-22] MEDS: DULoxetine HCL 30 MG CAPSULE.DR PO SCH (09:31)
[2017-05-22] MEDS: MEGESTROL ACETATE 40 MG/ML PO SCH ×2 (09:33→19:32)
[2017-05-22] MEDS: CYANOCOBALAMIN 1,000 MCG TABLET PO SCH (09:33)
[2017-05-22] MEDS: oxyCODONE/ACETAMINOPHEN 5/325 TABLET PO PRN ×2 (09:33→14:16)
[2017-05-22] MEDS: ENOXAPARIN SODIUM 30 MG/0.3 ML DISP.SYRIN SQ SCH (14:09)
[2017-05-22] MEDS: OXYBUTYNIN CHLORIDE 5 MG TABLET PO SCH (19:32)
[2017-05-22] MEDS: MIRTAZAPINE 15 MG TABLET PO SCH (19:32)
[2017-05-23] MEDS: PANTOPRAZOLE SODIUM 40 MG TABLET PO SCH ×2 (06:17→20:00)
[2017-05-23] MEDS: oxyCODONE/ACETAMINOPHEN 5/325 TABLET PO PRN ×3 (06:17→18:19)
[2017-05-23] MEDS: DOCUSATE SODIUM 100 MG CAPSULE PO SCH (08:20)
[2017-05-23] MEDS: IBUPROFEN 400 MG TABLET PO SCH ×3 (08:20→17:07)
[2017-05-23] MEDS: CYANOCOBALAMIN 1,000 MCG TABLET PO SCH (08:21)
[2017-05-23] MEDS: MEGESTROL ACETATE 40 MG/ML PO SCH ×2 (08:21→20:00)
[2017-05-23] MEDS: DULoxetine HCL 30 MG CAPSULE.DR PO SCH (08:21)
[2017-05-23] MEDS: ENOXAPARIN SODIUM 30 MG/0.3 ML DISP.SYRIN SQ SCH (14:16)
[2017-05-23] MEDS: MIRTAZAPINE 15 MG TABLET PO SCH (20:00)
[2017-05-23] MEDS: OXYBUTYNIN CHLORIDE 5 MG TABLET PO SCH (20:02)
[2017-05-24] MEDS: PANTOPRAZOLE SODIUM 40 MG TABLET PO SCH (06:04)
[2017-05-24] MEDS: oxyCODONE/ACETAMINOPHEN 5/325 TABLET PO PRN ×3 (06:08→18:26)
[2017-05-24] MEDS: DOCUSATE SODIUM 100 MG CAPSULE PO SCH (09:39)
[2017-05-24] MEDS: IBUPROFEN 400 MG TABLET PO SCH ×3 (09:39→17:01)
[2017-05-24] MEDS: CYANOCOBALAMIN 1,000 MCG TABLET PO SCH (09:40)
[2017-05-24] MEDS: DULoxetine HCL 30 MG CAPSULE.DR PO SCH (09:40)
[2017-05-24] MEDS: MEGESTROL ACETATE 40 MG/ML PO SCH ×2 (10:00→20:56)
[2017-05-24] MEDS: ENOXAPARIN SODIUM 30 MG/0.3 ML DISP.SYRIN SQ SCH (13:01)
[2017-05-24] MEDS: OXYBUTYNIN CHLORIDE 5 MG TABLET PO SCH (20:55)
[2017-05-24] MEDS: MIRTAZAPINE 15 MG TABLET PO SCH (20:55)
[2017-05-25] MEDS: PANTOPRAZOLE SODIUM 40 MG TABLET PO SCH (06:33)
[2017-05-25] MEDS: oxyCODONE/ACETAMINOPHEN 5/325 TABLET PO PRN (06:35)
[2017-05-25] MEDS: IBUPROFEN 400 MG TABLET PO SCH ×3 (08:00→17:56)
[2017-05-25] MEDS: DOCUSATE SODIUM 100 MG CAPSULE PO SCH (08:00)
[2017-05-25] MEDS: DULoxetine HCL 30 MG CAPSULE.DR PO SCH (08:00)
[2017-05-25] MEDS: CYANOCOBALAMIN 1,000 MCG TABLET PO SCH (08:00)
[2017-05-25] MEDS: MEGESTROL ACETATE 40 MG/ML PO SCH ×2 (08:00→21:01)
[2017-05-25] MEDS: oxyCODONE/ACETAMINOPHEN 5/325 TABLET PO SCH ×4 (09:44→21:01)
[2017-05-25 10:07] LABS: BASOPHILS % 0.8 (0.0-1.5); EOSINOPHILS % 0.8 % (0.0-6.8); MEAN CORPUSCULAR HEMOGLOBIN 30.9 pg (28.0-34.0); MONOCYTES % 4.9 % (0.0-11.0); NEUTROPHILS # 5.6 # k/uL (1.4-7.7)
[2017-05-25 10:31] LABS: eGFR (African) > 60; eGFR (Non-African) > 60
[2017-05-25] MEDS: ENOXAPARIN SODIUM 30 MG/0.3 ML DISP.SYRIN SQ SCH (12:45)
[2017-05-25] MEDS: MIRTAZAPINE 15 MG TABLET PO SCH (21:00)
[2017-05-25] MEDS ORDERED: oxyCODONE/ACETAMINOPHEN 5/325 TABLET PO SCH (21:00)
[2017-05-25] MEDS: OXYBUTYNIN CHLORIDE 5 MG TABLET PO SCH (21:00)
[2017-05-26] MEDS: PANTOPRAZOLE SODIUM 40 MG TABLET PO SCH (06:04)
[2017-05-26] MEDS: oxyCODONE/ACETAMINOPHEN 5/325 TABLET PO SCH ×5 (06:04→20:23)
[2017-05-26 08:04] LABS: APPEARANCE,URINE CLEAR (CLEAR); COLOR,URINE YELLOW (YELLOW)
[2017-05-26 08:05] LABS: OCCULT BLOOD,URINE TRACE-INTACT (NEGATIVE); PH URINE 6.5 (5.0 - 8.0)
[2017-05-26] MEDS: IBUPROFEN 400 MG TABLET PO SCH ×3 (08:40→17:25)
[2017-05-26] MEDS: DULoxetine HCL 30 MG CAPSULE.DR PO SCH (08:41)
[2017-05-26] MEDS: DOCUSATE SODIUM 100 MG CAPSULE PO SCH (08:41)
[2017-05-26] MEDS: CYANOCOBALAMIN 1,000 MCG TABLET PO SCH (08:41)
[2017-05-26] MEDS: MEGESTROL ACETATE 40 MG/ML PO SCH ×2 (08:56→20:24)
[2017-05-26] MEDS: ENOXAPARIN SODIUM 30 MG/0.3 ML DISP.SYRIN SQ SCH (15:32)
[2017-05-26] MEDS: OXYBUTYNIN CHLORIDE 5 MG TABLET PO SCH (20:23)
[2017-05-26] MEDS: MIRTAZAPINE 15 MG TABLET PO SCH (20:23)
[2017-05-27] MEDS: oxyCODONE/ACETAMINOPHEN 5/325 TABLET PO SCH ×2 (06:24→10:34)
[2017-05-27] MEDS: PANTOPRAZOLE SODIUM 40 MG TABLET PO SCH (06:24)
--- NOTE | 2017-05-27 08:19 | Discharge Summary ---
Discharge Summary - Discharge Sumary History of Present Illness: Patient had been hospitalized with pneumonia. ON discharge she was too weak to return home so it was elected to admit her SNF to get her stronger to return home. Condition at Discharge: Stable Home Medications: Ambulatory Orders Medication Instructions Recorded Cyanocobalamin [Vitamin B-12] 1,000 mcg PO DAILY 05/10/17 Docusate Sodium [Colace] 100 mg PO DAILY 05/10/17 DULoxetine HCL [Cymbalta] 30 mg PO DAILY capsule. 05/26/17 Ibuprofen [Advil] 400 mg PO TID tablet 05/26/17 Ipratropium/Albuterol Sulfate 3 ml NEB QID PRN ampul.neb 05/26/17 [Duoneb] Consultations this Visit: None Procedures this Visit: None Allergies/Adverse Reactions: Allergies Allergy/AdvReac Type Severity Reaction Status Date / Time No Known Allergies Allergy Verified 05/10/17 10:07 Discharge Summary: Patient admitted for SNF care after hospitalized with pneumonia with her metastatic lung cancer. She did not progress well with PT/OT due to continued weakness. Her mental status did get slightly worse. Urine and lab testing negative. Patient not ready to go home due to weakness therefore transitioned to [facility]CF care. Hospital Course: Discharge Dx: Weakness. Pneumonia. Lung Cancer. Dementia. Disposition: ICF
[2017-05-27] MEDS: IBUPROFEN 400 MG TABLET PO SCH ×2 (08:43→12:44)
[2017-05-27] MEDS: CYANOCOBALAMIN 1,000 MCG TABLET PO SCH (08:44)
[2017-05-27] MEDS: DOCUSATE SODIUM 100 MG CAPSULE PO SCH (08:44)
[2017-05-27] MEDS: DULoxetine HCL 30 MG CAPSULE.DR PO SCH (08:44)
[2017-05-27] MEDS: MEGESTROL ACETATE 40 MG/ML PO SCH (09:39)
[2017-05-27 14:24] VITALS: BP 126/66
== END 2017-05-27 14:10 | DRG 947 ==
LOC: SOUTH 11:17
PROVIDERS: ADMIT Family Medicine; ATTEND Family Medicine
DX: R53.1 Weakness (principal); J18.9 Pneumonia, unspecified organism; C34.90 Malignant neoplasm of unspecified part of unspecified bronchus or lung; F03.90 Unspecified dementia, unspecified severity, without behavioral disturbance, psychotic disturbance, mood disturbance, and anxiety
CPT/HCPCS: 36415; 80053; 81002; 85025; 94640; 94760; 97112; 97116; 97161; 97165; 97530; 97535; A9270; J1650

== ENCOUNTER 2017-05-27 14:00 | Inpatient (IN) | payer SELFPAY ==
[2017-05-27 14:24] VITALS: BP 126/66
--- NOTE | 2017-06-27 10:00 | Discharge Summary ---
DATE OF ADMISSION: June 17, 2017 DATE OF DISCHARGE: June 25, 2017 DISCHARGE DIAGNOSES: 1. Weakness. 2. Severe back pain. 3. Chronic obstructive pulmonary disease (COPD). 4. Metastatic lung cancer. 5. Depression. HOSPITAL COURSE: Patient was admitted to [facility] care as her just could not take care of her at home any longer. She underwent some outpatient physical therapy and did progress to where he thought he could manage. Certainly, she is limited by her metastatic lung cancer, her severe back pain, and her mobility issues. She has a hard time doing her ADLs and is greatly impaired in this. She also has severe dyspnea when moving around very much. Therefore, we are ordering a bedside commode to help limit her having to go all the way to the bathroom in their house and having some urinary urgency frequently. This may help keep her dry if we can get her on the toilet quicker. She also has this severe decrease in her mobility. I feel she qualifies for a wheelchair. She cannot use a cane or a walker, as she does not have the strength to hold herself up, and this will not resolve her mobility limitation. Her home is adequate for use of a wheelchair. She is willing to use a manual wheelchair. She does okay using it with her upper extremity function but also her can help move her from room to room for bathing, toileting, meals, and dressing. She was discharged with him to follow up with Oncology as scheduled and with me in 2 months. She also had some decreased weight, as we had stopped her Megace, and her appetite really dropped off. So, we will restart her Megace as an outpatient and keep an eye on her weight. We will have home health also start seeing her at home also. CONDITION ON DISCHARGE: Discharged from [facility] to home with home health in fair condition. DISCHARGE DIET: Regular. DISCHARGE ACTIVITY: Ad marcin. MEDICATIONS ON DISCHARGE: 1. Ibuprofen 400 mg t.i.d. 2. Percocet 5/325 mg 1-1/2 tablets q.i.d. and 1 at bedtime. 3. Mirtazapine 15 mg at night. 4. Oxybutynin 5 mg at night. 5. Oxygen at 3 liters per nasal cannula. 6. Vitamin D3, 2000 international units daily. 7. Iron sulfate 325 mg daily. 8. PreserVision daily. 9. Aspirin 81 mg daily. 10. Colace 100 mg daily. 11. Duloxetine 30 mg in the morning. 12. Vitamin B12, 1000 mcg daily. 13. MiraLAX 1 gram, 8 ounce liquid daily. 14. Omeprazole 20 mg b.i.d. 15. Megace 7.5 mg 15 mL b.i.d. DISCHARGE INSTRUCTIONS: Follow up with Dr. Andino in 2 months. [facility]
== END 2017-06-25 11:30 | disposition home or self-care (01) | DRG 948 ==
LOC: ICF 14:00 → UNDOADMIN 14:00 → ICF 16:07 → UNDOADMIN 16:07 → ICF 06-17 11:44
PROVIDERS: ADMIT Family Medicine; ATTEND Family Medicine
DX: R53.1 Weakness (principal); C34.90 Malignant neoplasm of unspecified part of unspecified bronchus or lung; M54.89 Other dorsalgia; J44.9 Chronic obstructive pulmonary disease, unspecified

== ENCOUNTER 2017-09-27 04:52 | Emergency (ER) | payer MEDICARE ==
--- NOTE | 2017-09-27 05:30 | ED Physician Documentation ---
Fall - HISTORIAN Historian: patient - HPI Stated Complaint: Right Hip Pain s/p Fall Chief Complaint: Hip Pain Onset: just prior to arrival Where: home Context: tripped r: moderate Associated Symptoms:: no loss of consciousness Location of Pain/Injury: hip (right ) Injury to Right Extremity: elbow (small bruise ) Injury to Left Extremity: none Further Comments: yes (She is not aware of exactly how she fell. She has chronic back pain. She was complaining of pain in her back and her states he went to get her a pain pill and when he returned she was on the floor (alert) and complaining of pain in her right hip . she then went to bed and continued to complain of pain when he called 911) - ROS CONST: no problems NEURO: denies: dizziness MS/SKIN/LYMPH: back pain (chonic ). denies: weakness, numbness CVS/RESP: none GI/: problems urinating (incontient ) - PAST HX Past History: other (Chronic low back pain, depression, reflux, memory impairment, COPD, Anemia, ) Immunizations: UTD - SOCIAL HX Smoking History: non-smoker Alcohol Use: none Drug Use: none - FAMILY HX Family History: none - VITAL SIGNS Vital Signs: Vital Signs Temp Pulse Resp BP Pulse Ox 98 F 125/65 09/27/17 04:55 08/18/17 10:00 - REVIEWED ASSESSMENTS Nursing Assessment Reviewed: Yes Vitals Reviewed: Yes <Belkys Lala - Last Filed: 09/27/17 06:56> - HPI Further Comments: yes - PAST HX Past History: COPD (on 3 liters at home), other (Chronic low back pain, depression, reflux, memory impairment, COPD, Anemia, history of DVT) Immunizations: UTD - VITAL SIGNS Vital Signs: Vital Signs Temp Pulse Resp BP Pulse Ox 98 F 125/65 09/27/17 04:55 08/18/17 10:00 <Chintan Menard - Last Filed: 09/27/17 07:52> - PAST HX Allergies/Adverse Reactions: Allergies Allergy/AdvReac Type Severity Reaction Status Date / Time No Known Allergies Allergy Verified 08/10/17 10:49 Home Medications: Ambulatory Orders Medication Instructions Recorded Docusate Sodium [Colace] 100 mg PO DAILY 05/10/17 Acetaminophen [Tylenol] 650 mg PO Q4H PRN tablet 08/17/17 Megestrol Acetate [Megace] 40 mg PO TID oral.susp 08/17/17 Mirtazapine [Remeron] 15 mg PO HS #30 tablet 08/18/17 Aspirin [Frederick] 81 mg PO DAILY 09/27/17 Cefdinir [Cefdinir] 300 mg PO BID 09/27/17 Duloxetine HCl [Duloxetine HCl] 30 mg PO DAILY 09/27/17 Fluticasone Propionate 110 Mcg 1 puff IH DAILY 09/27/17 [Flovent Hfa] Furosemide [Furosemide] 20 mg PO DAILY 09/27/17 Omeprazole [Prilosec] 20 mg PO DAILY 09/27/17 Progress - Progress Progress: 0600: sleeping in bed. DG 0635: [facility] called report given will await an accepting Physician. Pt continues to sleep in bed. DG <Belkys Lala - Last Filed: 09/27/17 06:56> - Progress Progress: 0703: Patient just has fentanyl 50mcg, is still complaining of pain will give another 50 mcg. <Chintan Menard - Last Filed: 09/27/17 07:52> ED Results Lab/Radiology - Radiology Radiology Impressions: HISTORY: 81-year-old female with right hip pain after fall. COMPARISON: None available TECHNIQUE: Noncontrast axial CT images of the pelvis were performed. Sagittal and coronal reformatted images were obtained. IMPRESSION: 1. Comminuted right proximal femoral intertrochanteric fracture, including fractures of the greater and lesser trochanters, consistent with a four part fracture in the Neer classification. There is shortening and varus angulation. 2. No other fractures are identified about the left hip or pelvis. 3. Mild degenerative changes of the hips, sacroiliac joints, and lower lumbar spine. 4. Extensive sigmoid colon diverticulosis without evidence of acute diverticulitis. 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 HEAVY by: Dougie Tomas - Orders Orders: ED Orders Category Date Time Status CT PELVIS W/O CONTRAST Stat Exams 09/27/17 04:56 Taken <Belkys Lala - Last Filed: 09/27/17 06:56> - Lab Results Lab Results: Lab Results 09/27/17 09/27/17 09/27/17 Unknown 05:51 05:51 WBC 11.12 K/ul K/ul (4.00-12.00) RBC 3.28 M/ul L M/ul (3.90-5.20) Hgb 10.1 g/dL L g/dL (12.0-16.0) Hct 32.0 % L % (34.5-46.5) MCV 97.5 fl fl (80.0-100.0) MCH 30.6 pg pg (28.0-34.0) MCHC 31.4 g/dL g/dL (30.0-36.0) RDW 14.6 % H % (11.3-14.3) Plt Count 190 K/mm3 K/mm3 (130-400) Neut % (Auto) 81.8 % H % (39.0-79.0) Lymph % (Auto) 11.0 % L % (16.0-50.0) [place] % (Auto) 4.4 % % (0.0-11.0) Eos % (Auto) 0.5 % % (0.0-6.8) Baso % (Auto) 1.3 (0.0-1.5) Neut # (Auto) 9.1 # k/uL H # k/uL (1.4-7.7) Lymph # (Auto) 1.2 # k/uL # k/uL (0.6-4.0) [place] # (Auto) 0.5 # k/uL # k/uL (0.0-0.9) Eos # (Auto) 0.0 # k/uL # k/uL (0.0-0.6) Baso # (Auto) 0.2 # k/uL # k/uL (0.0-0.5) Reactive Lymphs % 1.0 % % (0.0-5.0) Reactive Lymphs # 0.1 # k/uL # k/uL (0.0-0.8) PT 11.5 Seconds Seconds (9.4-11.6) INR 1.10 (0.9-1.2) Sodium 143 mmol/L mmol/L (136-145) Potassium 4.0 mmol/L mmol/L (3.5-5.1) Chloride 105 mmol/L mmol/L (98-107) Carbon Dioxide 24 mmol/L mmol/L (22-30) BUN 12 mg/dL mg/dL (7-17) Creatinine 0.90 mg/dL mg/dL (0.52-1.04) Estimated Creat Clear 68 Est GFR ( Amer) > 60 (60 - ) Est GFR (Non-Af Amer) > 60 (60 - ) Glucose 133 mg/dL H mg/dL (74-106) Calcium 9.4 mg/dL mg/dL (8.4-10.2) Total Bilirubin 0.7 mg/dL mg/dL (0.2-1.3) AST 20 U/L U/L (15-46) ALT 29 U/L U/L (13-69) Alkaline Phosphatase 116 U/L U/L (38-126) Total Protein 6.7 g/dL g/dL (6.3-8.2) Albumin 3.5 g/dL g/dL (3.5-5.0) - Orders Orders: ED Orders Category Date Time Status CT PELVIS W/O CONTRAST Stat Exams 09/27/17 04:56 Completed CBC/PLATELET/DIFF Stat Lab 09/27/17 05:51 Completed CMP Stat Lab 09/27/17 05:51 Completed PTINR [PT-INR] Routine Lab 09/27/17 Completed fentaNYL CITRATE/PF [Duragesic] Med 09/27/17 05:39 Discontinued 100 mcg .ROUTE .STK-MED ONE fentaNYL CITRATE/PF [Duragesic] Med 09/27/17 05:48 Discontinued 50 mcg IVP NOW ONE fentaNYL CITRATE/PF [Duragesic] Med 09/27/17 07:03 Once 50 mcg IVP NOW ONE EKG WITH COMPARISON Stat Ther 09/27/17 Completed <Chintan Menard - Last Filed: 09/27/17 07:52> Fall Physical Exam - Physical Exam General Appearance: no acute distress, alert Head: non-tender Neck: non-tender Eye: DAVID Resp/CVS: chest non-tender, no resp. distress, heart sounds nml, decreased breath sounds (right ), wheezes. No: rib tenderness Abdomen: soft, normal bowel sounds Neuro: oriented x3, CN's nml as tested, sensation nml, motor nml, mood/affect nml Skin: color nml, no rash Extremities: other (pain with palpation to right hip. Denies any pain without movement. Pulses +, Cap refill + unable to bear weight ) - Dottie Coma Score Eyes Open: Spontaneous Speech: Oriented Motor: Obeys Commands <Belkys Lala - Last Filed: 09/27/17 06:56> - Physical Exam Joint: limited ROM (right hip), unable to bear weight <Chintan Menard - Last Filed: 09/27/17 07:52> Discharge <Belkys Lala - Last Filed: 09/27/17 06:56> Decision to Admit: [id number] Date of Decison to Admit: 09/27/17 Decision Time: 07:08 (\) <Chintan Menard - Last Filed: 09/27/17 07:52> Clincal Impression: Closed right hip fracture Referrals: Cate Andino MD [Primary Care Provider] - 2 Days Condition: Fair Disposition: XFER [facility]
[2017-09-27] MEDS: fentaNYL CITRATE/PF 100 MCG/ 2ML AMP IVP ONE ×2 (05:50→07:21)
[2017-09-27] MEDS: fentaNYL CITRATE/PF 100 MCG/ 2ML AMP ONE (05:51)
[2017-09-27 06:27] LABS: eGFR (African) > 60; eGFR (Non-African) > 60
[2017-09-27 06:28] LABS: BASOPHILS % 1.3 (0.0-1.5); EOSINOPHILS % 0.5 % (0.0-6.8); MEAN CORPUSCULAR HEMOGLOBIN 30.6 pg (28.0-34.0); MEAN CORPUSCULAR VOLUME 97.5 fl (80.0-100.0); MONOCYTES % 4.4 % (0.0-11.0); NEUTROPHILS # 9.1 # k/uL (1.4-7.7)
--- NOTE | 2017-09-27 06:48 | Diagnostic Imaging Report ---
HALI TRINH [facility] [address] [facility] [address] [place], [place]. [address] Report Submission Date: Sep 27, 2017 5:32:07 AM MANAGER CLIENT SUPPORT Patient Study Name: JULEE CHEN Date: Sep 27, 2017 5:06:00 AM MANAGER CLIENT SUPPORT Modality Type: CT\SR Gender: F Description: CT PELVIS S : 37 Institution: [facility] Physician: HALI TRINH HISTORY: 81-year-old female with right hip pain after fall. COMPARISON: None available TECHNIQUE: Noncontrast axial CT images of the pelvis were performed. Sagittal and coronal reformatted images were obtained. IMPRESSION: 1. Comminuted right proximal femoral intertrochanteric fracture, including fractures of the greater and lesser trochanters, consistent with a four part fracture in the Neer classification. There is shortening and varus angulation. 2. No other fractures are identified about the left hip or pelvis. 3. Mild degenerative changes of the hips, sacroiliac joints, and lower lumbar spine. 4. Extensive sigmoid colon diverticulosis without evidence of acute diverticulitis. Electronically signed on Sep 27, 2017 5:32:07 AM MANAGER CLIENT SUPPORT by: Dougie WILLIAM
[2017-09-27 07:47] VITALS: BP 128/62
== END 2017-09-27 07:40 | disposition short-term general hospital (02) ==
LOC: ED 04:52
DX: S72.001A Fracture of unspecified part of neck of right femur, initial encounter for closed fracture (principal); W19.XXXA Unspecified fall, initial encounter; Y93.9 Activity, unspecified; Y92.9 Unspecified place or not applicable; Y99.9 Unspecified external cause status; M54.5 Low back pain; F06.8 Other specified mental disorders due to known physiological condition; J44.1 Chronic obstructive pulmonary disease with (acute) exacerbation; D64.9 Anemia, unspecified
CPT/HCPCS: 72192; 80053; 85025; 85610; 93005; J3010; 96374; 96376; 99283; 99284

== ENCOUNTER 2017-11-09 07:17 | Emergency (ER) | payer MEDICARE ==
--- NOTE | 2017-11-09 07:36 | ED Physician Documentation ---
General Adult - HISTORIAN Historian: paramedics - HPI Stated Complaint: dyspnea Chief Complaint: General Adult Onset: hours Timing: still present Severity: severe Further Comments: yes (Pt is a 81 yo female with chronic hypoxia and resp failure/lung cancer, on home O2, sent from intermediate for decreased lung sounds, increased respirations, and increased bp. SpO2 was 85% on RA at PA and 70% RA on presentation to ER. Pt appeared confused at PA. Pt presents with gurgling respirations. 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; on home O2; anemia; failure to thrive; TIA; depression; DMII; GERD; HLD; diverticulosis.) Allergies/Adverse Reactions: Allergies Allergy/AdvReac Type Severity Reaction Status Date / Time No Known Allergies Allergy Verified 08/10/17 10:49 Home Medications: Ambulatory Orders Medication Instructions Recorded Docusate Sodium [Colace] 100 mg PO DAILY 05/10/17 Acetaminophen [Tylenol] 650 mg PO Q4H PRN tablet 08/17/17 Megestrol Acetate [Megace] 40 mg PO TID oral.susp 08/17/17 Mirtazapine [Remeron] 15 mg PO HS #30 tablet 08/18/17 Aspirin [Frederick] 81 mg PO DAILY 09/27/17 Fluticasone Propionate 110 Mcg 1 puff IH DAILY 09/27/17 [Flovent Hfa] Furosemide [Furosemide] 20 mg PO DAILY 09/27/17 Omeprazole [Prilosec] 20 mg PO DAILY 09/27/17 - SOCIAL HX Smoking History: quit greater than 1 year - FAMILY HX Family History: No - VITAL SIGNS Vital Signs: Vital Signs Temp Pulse Resp BP Pulse Ox 128/62 09/27/17 07:44 - REVIEWED ASSESSMENTS Nursing Assessment Reviewed: Yes Vitals Reviewed: Yes Progress - Progress Progress: Duoneb HFN NS 250 cc IVF CXR: Findings: Single view of the chest demonstrates a mildly prominent cardiac and mediastinal silhouette. Patient rotated. Lung paul demonstrate diffuse parenchymal - haziness most pronounced within the right upper lung. Apical thickening. No blunting of the costophrenic margins. Right-sided saw cath. Articular degenerative changes. Old appearing left-sided rib fractures. Impression: Diffuse parenchymal haziness bilaterally. No definite effusion given exam technique. Pt is DNR. CPAP started Lasix 40 mg for elevated BNP WBC=58.1 (was 11.1 on 09-27-17) Pt continued to decompensate. Pt at 8:44 am. - EKG/XRAY/CT EKG: rhythm (sinus tachycardia, EU=461; normal axis; normal AK interval; non- specific T-wave abnormality) General Adult Physical Exam - PHYSICAL EXAM GENERAL APPEARANCE: severe distress EENT: dry mucous membranes NECK: normal inspection, supple RESPIRATORY: rales, rhonchi, other (gurgling respirations) CVS: tachycardia ABDOMEN: soft, no organomegaly, decreased BS BACK: normal inspection SKIN: pallor EXTREMITIES: non-tender, no edema NEURO: other (minimally responsive) Discharge Clincal Impression: Respiratory Failure, Lung Cancer, CHF, Pneumonia, Referrals: Cate Andino MD [Primary Care Provider] - Condition: Serious Disposition: 20 Decision to Admit: NO Decision Time: 08:47
[2017-11-09] MEDS ORDERED: IPRATROPIUM/ALBUTEROL SULFATE 3 ML AMPUL.NEB NEB ONE (07:38)
[2017-11-09] MEDS ORDERED: 0.9 % SODIUM CHLORIDE 250 ML IV ONE (07:48)
[2017-11-09 08:07] LABS: MEAN CORPUSCULAR HEMOGLOBIN 31.8 pg (28.0-34.0); MEAN CORPUSCULAR VOLUME 102.4 fl (80.0-100.0)
[2017-11-09 08:23] VITALS: BP 87/50
[2017-11-09 08:27] LABS: MONOCYTES % 2 % (0-11); SEGMENTED NEUTROPHILS % 84 % (39-79)
[2017-11-09 08:32] LABS: eGFR (African) 35; eGFR (Non-African) 29
[2017-11-09] MEDS ORDERED: FUROSEMIDE 40 MG/4 ML VIAL IVP ONE (08:36)
--- NOTE | 2017-11-09 18:39 | Diagnostic Imaging Report ---
JEOVANY WELLINGTON [facility] [place] [facility] [address] [facility] [address] [place] [address]. [address] Report Submission Date: Nov 09, 2017 8:34:17 AM CDT Patient Study Name: JULEE CHEN Date: Nov 09, 2017 8:02:15 AM CDT Modality Type: DX Gender: F Description: CHEST : 39 Institution: [facility] [place] [facility] Physician: JEOVANY WELLINGTON Examination: Portable chest History: Evaluate lungs. PORTABLE CXR FOR DYSPNEA. PT UNABLE TO FOLLOW BREATHING INSTRUCTIONS (Hx) Comparison exam: None available for direct review. Findings: Single view of the chest demonstrates a mildly prominent cardiac and mediastinal silhouette. Patient rotated. Lung paul demonstrate diffuse parenchymal - haziness most pronounced within the right upper lung. Apical thickening. No blunting of the costophrenic margins. Right-sided saw cath. Articular degenerative changes. Old appearing left-sided rib fractures. Impression: Diffuse parenchymal haziness bilaterally. No definite effusion given exam technique. Electronically signed on Nov 09, 2017 8:34:17 AM CDT by: Satya WILLIAM
== END 2017-11-09 08:45 | disposition expired ==
LOC: ED 07:17
DX: J96.90 Respiratory failure, unspecified, unspecified whether with hypoxia or hypercapnia (principal); C34.90 Malignant neoplasm of unspecified part of unspecified bronchus or lung; C79.51 Secondary malignant neoplasm of bone; Z87.891 Personal history of nicotine dependence; I50.9 Heart failure, unspecified; J18.9 Pneumonia, unspecified organism
CPT/HCPCS: 71045; 80053; 82550; 83880; 84484; 85025; J1940; 94640; 96374; 99284; S1016